=== PATIENT | male | born 1935 | race Caucasian/White ===

== ENCOUNTER 2016-07-20 11:15 | Inpatient (IN) | payer MEDICARE, OTHER ==
--- NOTE | ~2016-07-20 | DS ---
Discharge Summary [facility] [address] [place]. [address] NAME: DAYANA SKY : 33 STATUS : DIS IN PAT#: [id number] AGE: 81 ADM/REG DATE : 07/20/16 MR#: [id number] REPORT SERV DATE: 08/05/16 DICTATED BY: JORDI FRANCOIS DATE: 08/04/16 REPORT STATUS : Draft TRANSCRIBED BY: MODPeg DATE: 08/04/16 ADMISSION DATE: 07/20/2016 DISCHARGE DATE: 08/04/2016 ADDENDUM: SUMMARY: The patient was initially seen by me on the 07/30/2016. Discharge planning had been done and the patient was to be transferred to a senior care facility in [place] or [place]. There was an issue with the [facility] level and approval. On 08/01, [facility] liaison indicated that there were no beds at the [place] or [place] facility for Mr. Sky and the referral was being closed. At this point, the only discharge options for Mr. Sky were direct admission to a [facility] or home with hospice care. I spoke with the patient's as did Case Management and Bottled Beverage Inspector. The patient does not need any criteria for admission to a senior care facility. Financial considerations precluded transfer to a [facility] for long-term care. The patient's opted for home care with hospice. She choiced for [facility]. The patient was seen by [facility] on 08/03/2015. His was present. Discharge was planned for 08/04 pending the 's ability to prepare her house. This actually did occur and the patient is being transferred home with hospice today. There were no new medical issues on 07/30, 07/31, 08/01, 08/02, 08/03, or 08/04. He developed no new symptoms. There were no changes in his exam. There were no changes in his laboratory monitoring required for his medical comorbidities and medication management. He is being discharged home with hospice today on the following medications; aspirin 325 mg daily, Persantine 75 mg twice daily, gabapentin 300 mg at bedtime, Synthroid 25 mcg daily, Seroquel 100 mg at bedtime, Flomax 0.4 mg daily, verapamil 40 mg twice daily, Levemir 20 units at bedtime, Tylenol 650 mg every four hours as needed, [place] 5/325 every four hours as needed, nitroglycerin sublingually as needed, Seroquel 50 mg every four hours as needed, Senokot two at bedtime as needed, omeprazole 20 mg before breakfast, citalopram 20 mg daily. DD/MODL Jordi Francois M.D. / [id number] CC: Juanjose Calero CHARLES
--- NOTE | ~2016-07-20 | DS ---
Discharge Summary [facility] [address] [place]. [address] NAME: DAYANA SKY : 33 STATUS : ADM [facility]#: [id number] AGE: 81 ADM/REG DATE : 07/20/16 MR#: [id number] REPORT SERV DATE: 07/30/16 DICTATED BY: LUCIANO LOGAN DATE: 07/29/16 REPORT STATUS : Draft TRANSCRIBED BY: MODPeg DATE: 07/29/16 ADMISSION DATE: 07/20/2016 DISCHARGE DATE: 07/29/2016 DISCHARGE DIAGNOSES: 1. Type 2 diabetes mellitus. 2. Hypothyroidism. 3. Depression with added stress. 4. Generalized debility. 5. Spinal stenosis by imaging. 6. Benign prostatic hypertrophy. 7. Hyperlipidemia. 8. Hypertension. 9. Mild cognitive impairment due to dementia. 10.History of cerebrovascular accident in the past. 11.Chronic congestive heart failure currently compensated. 12.Type 2 diabetes mellitus. 13.Coronary artery disease, status post CABG. CONSULTANTS DURING THIS HOSPITALIZATION: 1. Chandan Soto DO, of Spine surgery. 2. Aguila Matta M.D., of Psychiatry. INVASIVE PROCEDURES DONE DURING THIS HOSPITALIZATION: None. IMAGING DONE DURING THIS HOSPITALIZATION: MRI of the lumbar spine showing there is marked facet hypertrophy at L3, L4, L5 level. There is significant neuroforaminal stenosis on the left at L4-L5 which would explain left nerve complaints clinically. CT of the abdomen and pelvis showing no acute abdominal or pelvic pathology, status post cholecystectomy. CT of the brain, moderate advanced diffuse cerebral involutional changes and moderate deep white matter chronic microvascular ischemic changes. Old CVA, right posterior parietal watershed zone and old lacunar infarction, right basal ganglia. No definite acute CVA. Portable chest x-ray, cardiomegaly, mild pulmonary vascular congestion which since has resolved. 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 So he was admitted. For detailed history and physical exam, please see note dictated by Dr. Corona on 07/20/2016. HOSPITAL COURSE: After being admitted to the hospital, this patient was cared for by Dr. Len Vasquez. This patient was thought to have failure to thrive as he was not eating and drinking initially, that since have improved. His overall health status is stable. He continues to have difficulty walking. Based on his imaging, Dr. Vasquez asked Dr. Soto to see him and I discussed his care with Dr. Soto personally. He said that his symptoms did not fit any effects of the spinal stenosis and he recommended rehab and no further surgical intervention. This patient recently had lost his son. He had some abnormal grief reaction Discharge Summary [facility] [address] [place]. [address] NAME: DAYANA SKY : 33 STATUS : ADM IN PAT#: [id number] AGE: 81 ADM/REG DATE : 07/20/16 MR#: [id number] REPORT SERV DATE: 07/30/16 DICTATED BY: LUCIANO LOGAN DATE: 07/29/16 REPORT STATUS : Draft TRANSCRIBED BY: MODPeg DATE: 07/29/16 with severe depression and the reported that at times he has had inability to walk, because of this. He also had suffered from lower extremity osteoarthritis and has had knee replacements and that causes more difficulty as well. We asked Psychiatry to see the patient in consultation as well. Dr. 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 At that time, he discontinued his Remeron and changed the Seroquel to 100 mg at bedtime fixed dose. Added Zoloft 50 mg daily. All consultants have signed off his care. Because of his abnormal grief reaction, this patient is awaiting a pass or approval from the [facility] for residential facility. I have been waiting for the last five days to get this. Also the other rubi is that there has not been any beds at the residential facility in [place] or in [place] where the patient was choiced for. He remains medically stable and can be discharged any time once the approvals are obtained. DISCHARGE DISPOSITION: To residential facility for rehab. DISCHARGE ACTIVITY: Per facility. DISCHARGE DIET: Low sodium, 1800-calorie [place] [employer] diet. DISCHARGE MEDICATIONS: Aspirin 325 mg once daily, Lipitor 20 mg once at bedtime, dipyridamole 75 mg twice daily, gabapentin 300 mg once at bedtime, Levemir 40 units subcu twice daily, levothyroxine 25 mcg once daily, [place]-3 fish oil 1000 mg twice daily, Protonix 40 mg once every morning, Seroquel 100 mg once at bedtime, Zoloft 50 mg once daily, Flomax 0.4 mg once at bedtime, verapamil 40 mg twice daily, milk of magnesia 30 mL p.o. p.r.n. for constipation, Nitrostat 0.4 sublingual p.r.n. for chest pain, Lasix 40 mg once daily. DISCHARGE FOLLOWUP: With Dr. Curry Cook post rehab. More than 35 minutes spent planning this patient's discharge, reconciling medications, discussing hospital care, and followup with the patient and the at the bedside and documenting this discharge. SAIDA/KELBY Luciano Logan M.D. / [id number] CC: Juanjose Mejia
--- NOTE | ~2016-07-20 | CN ---
Consultation Report [facility] [address] [place]. [address] NAME: DAYANA SKY : 33 STATUS : ADM IN PAT#: [id number] AGE: 81 ADM/REG DATE : 07/20/16 MR#: [id number] REPORT SERV DATE: 07/23/16 DICTATED BY: CHANDAN SOTO DATE: 07/23/16 REPORT STATUS : Draft TRANSCRIBED BY: KELBY DATE: 07/23/16 INPATIENT CONSULTATION DATE OF CONSULTATION: 07/23/2016 CHIEF COMPLAINT: Lower extremity weakness. Inability to ambulate. HISTORY OF PRESENT ILLNESS: The patient is an 81-year-old, who I saw and examined in the hospital room. His was not present at that time. I will have to discuss with her at a later date. The patient does have a history of dementia as well as major depression per the psychiatry consultation. It does appear from the patient and from some of the previous history that he has had some issues with chronic lower back pain and lower extremity pain, however over the last week or two, he has had generalized debility, inability to ambulate, and feelings of weakness in the lower extremities. It does appear that this may have coincided with the sudden and unexpected of his son that triggered some of the depression issues per Psychiatry. PAST MEDICAL HISTORY: Includes congestive heart failure, history of stroke, dementia, coronary artery disease with CABG, hypertension, and diabetes. FAMILY HISTORY: Noncontributory. SOCIAL HISTORY: He denies tobacco. HOME MEDICATIONS: Include ibuprofen; milk of magnesia; Lipitor; aspirin; verapamil; Lasix; Synthroid; Ditropan; mirtazapine; metformin; Seroquel; Protonix; tamsulosin; omega-3; insulin; and nitroglycerin. ALLERGIES: NYQUIL AND STRAWBERRIES. REVIEW OF SYSTEMS: He denies chest pain or shortness of breath. PHYSICAL EXAMINATION: GENERAL: The patient is in no acute distress. PSYCHIATRIC: Able to answer some basic questions but limited secondary to dementia. SPINE: No diffuse tenderness. NEUROLOGIC: Strength in the lower extremities was difficult to grade due to difficulty with participation; however, he was grossly moving the lower extremities distally fairly well, had limited motion in the proximal lower extremities. When asked if it was related to pain or weakness, he said he did have some pain with it, so I am unable to give a specific grade for muscle strength in the lower extremities. IMAGING: I have reviewed the CT scan and MRI scan. He does have L3-5 disk disease and Consultation Report [facility] [id number] [place]. [address] NAME: DAYANA SKY : 33 STATUS : ADM IN PAT#: [id number] AGE: 81 ADM/REG DATE : 07/20/16 MR#: [id number] REPORT SERV DATE: 07/23/16 DICTATED BY: CHANDAN SOTO DATE: 07/23/16 REPORT STATUS : Draft TRANSCRIBED BY: MODL DATE: 07/23/16 stenosis with some nerve compression. No severe central stenosis. ASSESSMENT: Lumbar disk disease and stenosis as detailed above. This does not explain well his global symptoms of generalized weakness and inability to ambulate. On exam, he actually has better motion and strength distally than proximally which does not correlate well with the imaging findings. There is no significant compression of the proximal lumbar nerve roots that would be contributing to strength in the hip flexors, quadriceps, and hamstrings. PLAN: I will return later to discuss further with the patient's ; however at this point, I would be somewhat hesitant to recommend any surgical intervention as I do not feel that all of his inability to ambulate is directly related to the compression at the L3-L5 levels. Given his extensive medical history, certainly there would be significant risk of surgery. I will discuss with the patient and the once she returns but given the fact that much of this change appeared to be fairly sudden and directly around the time of his son's and major depression, it may be more related to the psychologic issues more so than the nerve root compression. ELDA/KELBY Chandan Soto DO / [id number] CC: Juanjose Mejia
--- NOTE | ~2016-07-20 | HP ---
History And Physical [facility] [address] [place]. [address] NAME: DAYANA SKY : 33 STATUS : ADM IN PAT#: [id number] AGE: 81 ADM/REG DATE : 07/20/16 MR#: [id number] REPORT SERV DATE: 07/20/16 DICTATED BY: GUME CELAYA DATE: 07/20/16 REPORT STATUS : Draft TRANSCRIBED BY: KELBY DATE: 07/20/16 DATE OF ADMISSION: 07/20/2016 CHIEF COMPLAINT: Inability to walk and generalized weakness. HISTORY OF PRESENT ILLNESS: This is an 81-year-old gentleman with medical history significant for congestive heart failure, dementia, history of coronary artery disease status post CABG, history of CVA, and chronic back pain who presented to the hospital with complaints of generalized weakness and inability to walk. The patient was unable to provide a reliable history; however, his was at the bedside at the time of this interview. It was noted by the patient's that the patient's son suddenly about a week ago. Four days ago, the service has held and after the service it was noted that patient started having generalized weakness, reported inability to and started complaining of extreme fatigue. Since the day of onset of the weakness, the patient has noted reduced appetite, inability to eat, excessive crying and also sad mood. No reported history of suicidal ideation or homicidal ideation. Also of note that in the last three days prior to presentation, the patient has had significant reduced p.o. intake. The patient currently lives with his who reports that she is unable to care for him in this current state of condition. The patient has remained bed-bound. has been unable to lift him out of bed. The patient reports complaint of worsening of his chronic back pain with radiation to his legs. There is also associated numbness of the lower extremities. The patient denies any fever. No chills, no cough, no dysuria, no frequency, no urgency. The patient denies any chest pain, denies any shortness of breath, PND, orthopnea, presyncopal or syncopal episode. No associated history of falls prior to presentation. PAST MEDICAL HISTORY: 1. Congestive heart failure. 2. History of CVA. 3. History of mild cognitive impairment due to dementia. 4. History of coronary artery disease status post CABG. 5. History of hypertension. 6. History of diabetes mellitus type 2. PAST SURGICAL HISTORY: History of CABG. FAMILY HISTORY: Significant for leukemia in his son who suddenly after remission on chemotherapy. Also note that the patient is the last child of nine siblings and presently, he is the only one alive. There is report of history of diabetes, hypertension, CVA in the family. SOCIAL HISTORY: The patient quit smoking cigarettes several years ago. Denies drinking alcohol or illicit drug use. The patient currently lives with his . MEDICATIONS: 1. Ibuprofen 400 mg p.o. daily as needed for headache. 2. Milk of magnesia p.o. as needed for constipation. History And Physical [address] [address] NAME: DAYANA SKY : 33 STATUS : ADM IN LOCATED WITHIN [facility]#: [id number] AGE: 81 ADM/REG DATE : 07/20/16 MR#: [id number] REPORT SERV DATE: 07/20/16 DICTATED BY: GUME CELAYA DATE: 07/20/16 REPORT STATUS : Draft TRANSCRIBED BY: KELBY DATE: 07/20/16 3. Lipitor 20 mg p.o. at bedtime. 4. Aspirin 325 mg p.o. every morning. 5. Verapamil 40 mg p.o. b.i.d. 6. Dipyridamole 75 mg p.o. twice a day. 7. Lasix 40 mg p.o. every morning. 8. Levothyroxine 25 mcg p.o. before breakfast. 9. Ditropan XL 10 mg p.o. every morning. 10.Mirtazapine 15 mg p.o. at bedtime. 11.Metformin 500 mg p.o. b.i.d. 12.Seroquel 100 mg p.o. b.i.d. 13.Seroquel 300 mg at bedtime. 14.Protonix 40 mg p.o. daily. 15.Tamsulosin 0.4 mg at bedtime. 16.[place]-3 fatty acid 100 mg p.o. b.i.d. 17.Insulin Levemir 40 mg subcu b.i.d. 18.Nitroglycerin 0.4 mg p.r.n. ALLERGIES: PATIENT IS ALLERGIC TO NYQUIL AND STRAWBERRY. REVIEW OF SYSTEMS: Positive for urinary incontinence per the patient. A 12-point review of system conducted, positive finding as stated in HPI as well as urinary incontinence. All other systems essentially negative. PHYSICAL EXAMINATION: VITAL SIGNS: Blood pressure 146/79 mmHg, temperature 97.8, pulse 79 beats per minute, respiratory rate 16 cycles per minute, saturating 100% on room air. GENERAL: Lying in bed comfortably with bouts of crying spells during the course of the interview. HEENT: Normocephalic, atraumatic. Extraocular muscles intact. Pupils equal, round, and reactive. Not pale. Anicteric. Oral mucosa dry. NECK: JVD. CHEST: No tenderness. Equal, symmetric. LUNGS: Clear to auscultation. No wheezes. No rhonchi. No crackles. ABDOMEN: Bowel sounds normoactive. Soft, nontender. No palpably enlarged organomegaly. Appears obese. EXTREMITIES: Lower extremities, no pedal edema. No cyanosis. NEUROLOGIC: Alert and oriented x2. Episodes of cognitive memory impairment. Strength in the lower extremities bilaterally 3/5. PSYCH: Depressed mood with bouts of crying spells. LABORATORY DATA: 1. Hematology: WBC 6.3, hemoglobin 14.0, hematocrit 40.6, platelets 150. 2. Chemistry: Sodium 140, potassium 3.9, chloride 102, bicarb 26, BUN 17, creatinine 1.49, GFR 43. Glucose 124, calcium is 8.7, total protein 7.3, albumin 3.1, globulin 4.2, total bilirubin 0.4, alkaline phosphatase 59, ALT 35, AST 39, troponin less than 0.02. Lactate 1.4. History And Physical [address] [place]. [address] NAME: DAYANA SKY : 33 STATUS : ADM IN LOCATED WITHIN [facility]#: [id number] AGE: 81 ADM/REG DATE : 07/20/16 MR#: [id number] REPORT SERV DATE: 07/20/16 DICTATED BY: GUME CELAYA DATE: 07/20/16 REPORT STATUS : Draft TRANSCRIBED BY: MODL DATE: 07/20/16 3. Influenza screen A and B negative. 4. Urinalysis is normal. 5. CT brain without contrast. Impression:. a. Moderate to advanced diffuse cerebral involutional changes and moderate deep white matter chronic microvascular ischemic change. b. Old CVA, right posterior parietal watershed zone and old lacunar infarct right basal ganglia. No definitive acute CVA. 6. Chest x-ray. Impression: Cardiomegaly, mild pulmonary vascular congestion. SUMMARY: This is an 81-year-old gentleman who presented to the hospital with complaints of generalized fatigue, inability to walk with depressed mood, extreme fatigue, reduced p.o. intake, who recently lost a son and concern for severe depression as well as pathological bereavement. ASSESSMENT AND PLAN: 1. Fatigue. 2. Pathological bereavement. 3. Major depression. 4. Acute on chronic back pain. 5. Inability to walk. 6. Diabetes mellitus type 2. 7. History of coronary artery disease, status post CABG. 8. Physical deconditioning. 9. Chronic kidney disease stage 3. Creatinine 1.4 at baseline. 10.The patient's extreme fatigue and inability to walk likely related to patient's major depression; however, the patient has complained about worsening of his acute on chronic back pain. This may likely be due to a somatization; however, given patient's known history of worsening back pain, I will obtain an imaging of the lumbar spine to rule out any acute pathology. The patient will be admitted into the Inpatient Service for further evaluation of the definitive etiology of acute on chronic back pain. Also, the patient will be undergoing a physical therapy evaluation for need for outpatient versus inpatient physical rehabilitation. I will also continue patient's antidepressant at this time. We will also resume the patient's subcu insulin. We will place the patient on cardiac telemetry and monitor his heart rhythm closely. 11.Per patient's request, we will notify the patient's primary cardiology, Dr. Billy as courtesy visit. 12.Code status: DNR/DNI. Admission status: Inpatient. 13.Admission disposition: Cardiac telemonitoring. 14.DVT prophylaxis. Heparin subcu. IOO/MODL Gume Celaya MD History And Physical [address] [address] NAME: DAYANA SKY : 33 STATUS : ADM IN PAT#: [id number] AGE: 81 ADM/REG DATE : 07/20/16 MR#: [id number] REPORT SERV DATE: 07/20/16 DICTATED BY: GUME CELAYA DATE: 07/20/16 REPORT STATUS : Draft TRANSCRIBED BY: KELBY DATE: 07/20/16 / [id number] CC: MD Aneesh Foster Jr., M.D.
--- NOTE | ~2016-07-20 | CN ---
Consultation Report [facility] [address] [place]. [address] NAME: DAYANA SKY : 33 STATUS : ADM IN PAT#: [id number] AGE: 81 ADM/REG DATE : 07/20/16 MR#: [id number] REPORT SERV DATE: 07/22/16 DICTATED BY: AGUILA PAYTON DATE: 07/22/16 REPORT STATUS : Draft TRANSCRIBED BY: MODL DATE: 07/22/16 PSYCHIATRIC CONSULTATION DATE OF CONSULTATION: 07/22/2016 I reviewed this patient's medical record. I discussed his status with Dr. Vasquez, the hospitalist. I discussed his history with his , who was at the bedside. HISTORY OF PRESENT ILLNESS: He was admitted with weakness and inability to walk. PAST PSYCHIATRIC HISTORY: His reported that he has been demented since he had a stroke in 12/2013. Following the stroke, he was in a longterm for some months, during which time he was started on Seroquel because of agitation and combativeness. His current home medication list included Seroquel 100 mg b.i.d. and 100 mg h.s. p.r.n. He was also on Remeron 15 mg q.h.s. He was able to do limited walking in the house with the aid of a walker, and he was able to assist his with transfers and toileting. However, since his son's unexpected just over one week ago, he has become increasingly weak and he has lost the ability to walk. SOCIAL HISTORY: He is in his third marriage for the past 26 years. His reports that he has been demented since he had his stroke. She said that he always recognized her, but he was not aware of the month or the year. FAMILY HISTORY: No psychiatric illness. MENTAL STATUS: He was lying very still on his back. He made fairly good eye contact. He slowly extended his arm for a handshake. He uttered an occasional word or phrase. These utterings were mostly irrelevant to my questions. His facial expression was mask like, but it suggested anxiety and sadness. He was oriented to "[place]"- [facility]." He did not know the month or the year. DIAGNOSIS: Dementia, post stroke, with a major grief component. RECOMMENDATIONS: I will discontinue the Remeron and start him on Zoloft 50 mg daily. I will change his fixed dosing of Seroquel to 100 mg q.h.s., and I will add a p.r.n. dosing schedule. I will follow. HIRAM/KELBY Aguila Payton M.D. / [id number] Consultation Report [address] [place]. [address] NAME: DAYANA SKY : 33 STATUS : ADM IN PAT#: [id number] AGE: 81 ADM/REG DATE : 07/20/16 MR#: [id number] REPORT SERV DATE: 07/22/16 DICTATED BY: AGUILA PAYTON DATE: 07/22/16 REPORT STATUS : Draft TRANSCRIBED BY: KELBY DATE: 07/22/16 CC: DO Joyce Sandoval Charles
[2016-07-20 12:01] LABS: BASOPHILS 0.3 %; BASOPHILS ABSOLUTE 0.02 10/3/uL (0.0-0.16); EOSINOPHILS 4.9 %; EOSINOPHILS ABSOLUTE 0.31 10/3/uL (0.0-0.53); ER CBC TAT 0 Hrs 03 Mins; HEMATOCRIT 40.6 % (40.0-51.0); IMMATURE GRANULOCYTES 0.2 %; IMMATURE GRANULOCYTES ABSOLUTE 0.01 10/3/uL (0.0-0.11); LYMPHOCYTES 40.5 %; LYMPHOCYTES ABSOLUTE 2.54 10/3/uL (0.67-4.30); MANUAL DIFF NO %; MEAN CORPUS HGB CONC 34.5 g/dL (32.0-36.0); MEAN CORPUSCULAR HEMOGLOB 32.5 pg (26.0-34.0); MEAN CORPUSCULAR VOLUME 94.2 fL (80-100); MEAN PLATELET VOLUME 9.4 fL (9.2-13.0); MONOCYTES 7.8 %; MONOCYTES ABSOLUTE 0.49 10/3/uL (0.21-1.20); NEUTROPHILS 46.3 %; PLATELET COUNT 150 10/3/uL (150-400); RBC DISTRIBUTION WIDTH 13.4 % (12.0-16.0); RED CELL COUNT 4.31 10/6/uL (4.7-6.1); WHITE BLOOD CELLS 6.3 10/3/uL (4.5-10.5)
[2016-07-20 12:11] LABS: INFLUENZA A SCREEN NEGATIVE (NEGATIVE); INFLUENZA B SCREEN NEGATIVE (NEGATIVE)
[2016-07-20 12:20] LABS: A/G RATIO 0.7 (0.7-1.9); ALBUMIN 3.1 G/DL (3.5-5.0); ALKALINE PHOSPHATASE 59 U/L (45-117); BUN (BLOOD UREA NITROGEN) 17 MG/DL (6-23); CALCIUM, SERUM 8.7 MG/DL (8.5-10.4); CHLORIDE, SERUM 102 MMOL/L (96-112); CO2 (CARBON DIOXIDE) 26 MMOL/L (24-34); CREATININE 1.49 MG/DL (0.70-1.30); GFR AFRICAN AMERICAN 50 ML/MIN (>=60); GFR NON AFRICAN AMERICAN 43 ML/MIN (>=60); GLOBULIN 4.2 G/DL (2.5-4.1); LACTATE 1.4 MMOL/L (0.3-2.4); POTASSIUM, SERUM 3.9 MMOL/L (3.5-5.3); SGOT(AST) 39 U/L (5-40); SGPT(ALT) 35 U/L (5-65); SODIUM, SERUM 140 MMOL/L (135-148); TOTAL BILIRUBIN 0.4 MG/DL (0-1.2); TOTAL PROTEIN 7.3 G/DL (6.0-8.5); TROPONIN I <0.02 NG/ML (<0.05)
[2016-07-20 12:22] LABS: GLUCOSE, SERUM 124 MG/DL (60-99)
[2016-07-20 12:51] LABS: ASCORBIC ACID (UR NOT ORDER) NEG (NEG); BILIRUBIN, URINE NEGATIVE (NEG); ER URINALYSIS TAT 0 Hrs 10 Mins; KETONE, URINE NEGATIVE (NEG); LEUKOCYTE ESTERASE(NOT OR NEG (NEG); NITRITE (URINE) NEG (NEG); WBC (NOT ORDERED) (RFLEX) 1 (0-5)
[2016-07-20] MEDS ORDERED: MOMUD PO (16:29)
[2016-07-20] MEDS ORDERED: LIPITOR20 PO (16:29)
[2016-07-20] MEDS ORDERED: ADVIL PO (16:29)
[2016-07-20] MEDS ORDERED: DIPYRIDAMOLE75 MG PO (16:30)
[2016-07-20] MEDS ORDERED: CALAN40 MG PO (16:30)
[2016-07-20] MEDS ORDERED: ASA5GR PO (16:30)
[2016-07-20] MEDS ORDERED: SYN.025B PO (16:31)
[2016-07-20] MEDS ORDERED: L40 PO (16:31)
[2016-07-20] MEDS ORDERED: DITROPAN XL10 MG PO (16:32)
[2016-07-20] MEDS ORDERED: REM15 PO (16:32)
[2016-07-20] MEDS ORDERED: FLOMAX4 PO (16:33)
[2016-07-20] MEDS ORDERED: PROTONIX PO (16:33)
[2016-07-20] MEDS ORDERED: NEUR300 PO (16:33)
[2016-07-20] MEDS ORDERED: GLUCPH PO (16:33)
[2016-07-20] MEDS ORDERED: SEROQUEL1C PO ×2 (16:33)
[2016-07-20] MEDS ORDERED: FISH-EPA1000 MG PO (16:34)
[2016-07-20] MEDS ORDERED: NITROSTAT0.4 MG SL (16:34)
[2016-07-20] MEDS ORDERED: LEVEMIR SC (16:34)
[2016-07-21 01:35] LABS: FREE T4 1.09 NG/DL (0.76-1.46); PHOSPHORUS, SERUM 2.5 MG/DL (2.5-4.5); ULTRASENSITIVE TSH 5.56 MCIU/ML (0.358-3.740)
[2016-07-21 07:02] LABS: BASOPHILS 0.5 %; BASOPHILS ABSOLUTE 0.03 10/3/uL (0.0-0.16); EOSINOPHILS 7.3 %; HEMATOCRIT 39.3 % (40.0-51.0); HEMOGLOBIN 13.7 g/dL (13.6-17.8); IMMATURE GRANULOCYTES 0.2 %; IMMATURE GRANULOCYTES ABSOLUTE 0.01 10/3/uL (0.0-0.11); LYMPHOCYTES 46.3 %; LYMPHOCYTES ABSOLUTE 2.53 10/3/uL (0.67-4.30); MEAN CORPUS HGB CONC 34.9 g/dL (32.0-36.0); MEAN CORPUSCULAR HEMOGLOB 32.2 pg (26.0-34.0); MEAN CORPUSCULAR VOLUME 92.5 fL (80-100); MEAN PLATELET VOLUME 9.8 fL (9.2-13.0); MONOCYTES ABSOLUTE 0.33 10/3/uL (0.21-1.20); NEUTROPHILS 39.7 %; NEUTROPHILS ABSOLUTE 2.17 10/3/uL (2.02-8.40); PLATELET COUNT 167 10/3/uL (150-400); RBC DISTRIBUTION WIDTH 13.8 % (12.0-16.0); RED CELL COUNT 4.25 10/6/uL (4.7-6.1); WHITE BLOOD CELLS 5.5 10/3/uL (4.5-10.5)
[2016-07-21 07:12] LABS: MANUAL DIFF NO %
[2016-07-21 07:18] LABS: ALBUMIN 3.2 G/DL (3.5-5.0); BUN (BLOOD UREA NITROGEN) 14 MG/DL (6-23); CALCIUM, SERUM 9.1 MG/DL (8.5-10.4); CHLORIDE, SERUM 102 MMOL/L (96-112); CO2 (CARBON DIOXIDE) 26 MMOL/L (24-34); CREATININE 1.35 MG/DL (0.70-1.30); GFR AFRICAN AMERICAN 56 ML/MIN (>=60); GFR NON AFRICAN AMERICAN 48 ML/MIN (>=60); GLUCOSE, SERUM 137 MG/DL (60-99); PHOSPHORUS, SERUM 2.9 MG/DL (2.5-4.5); POTASSIUM, SERUM 3.8 MMOL/L (3.5-5.3); SODIUM, SERUM 139 MMOL/L (135-148)
[2016-07-21 13:38] LABS: PROCALCITONIN 0.05 ng/mL (<0.5)
[2016-07-21 14:00] LABS: ALPHA FETOPROTEIN (TUMOR) 2.1 NG/ML (< 8.0); CA-19-9 47.6 U/ML (< 37.0)
[2016-07-21 14:03] LABS: CPK 79 U/L (0-200)
[2016-07-22 06:19] LABS: BASOPHILS 0.2 %; BASOPHILS ABSOLUTE 0.01 10/3/uL (0.0-0.16); EOSINOPHILS 6.4 %; EOSINOPHILS ABSOLUTE 0.38 10/3/uL (0.0-0.53); HEMATOCRIT 40.6 % (40.0-51.0); HEMOGLOBIN 14.1 g/dL (13.6-17.8); IMMATURE GRANULOCYTES 0.2 %; IMMATURE GRANULOCYTES ABSOLUTE 0.01 10/3/uL (0.0-0.11); LYMPHOCYTES 39.3 %; LYMPHOCYTES ABSOLUTE 2.32 10/3/uL (0.67-4.30); MEAN CORPUS HGB CONC 34.7 g/dL (32.0-36.0); MEAN CORPUSCULAR HEMOGLOB 32.4 pg (26.0-34.0); MEAN CORPUSCULAR VOLUME 93.3 fL (80-100); MEAN PLATELET VOLUME 9.6 fL (9.2-13.0); MONOCYTES 8.1 %; MONOCYTES ABSOLUTE 0.48 10/3/uL (0.21-1.20); NEUTROPHILS 45.8 %; PLATELET COUNT 166 10/3/uL (150-400); RBC DISTRIBUTION WIDTH 13.4 % (12.0-16.0); RED CELL COUNT 4.35 10/6/uL (4.7-6.1); WHITE BLOOD CELLS 5.9 10/3/uL (4.5-10.5)
[2016-07-22 06:20] LABS: MANUAL DIFF NO %
[2016-07-22 06:48] LABS: ALBUMIN 3.2 G/DL (3.5-5.0); ALKALINE PHOSPHATASE 55 U/L (45-117); BUN (BLOOD UREA NITROGEN) 13 MG/DL (6-23); CALCIUM, SERUM 8.9 MG/DL (8.5-10.4); CHLORIDE, SERUM 102 MMOL/L (96-112); CO2 (CARBON DIOXIDE) 25 MMOL/L (24-34); CREATININE 1.44 MG/DL (0.70-1.30); DIRECT BILIRUBIN 0.1 MG/DL (0.0-0.4); GFR AFRICAN AMERICAN 52 ML/MIN (>=60); GFR NON AFRICAN AMERICAN 45 ML/MIN (>=60); GLUCOSE, SERUM 150 MG/DL (60-99); INDIRECT BILIRUBIN(NOT ORDER) 0.9 MG/DL (0.1-0.9); POTASSIUM, SERUM 3.7 MMOL/L (3.5-5.3); SGOT(AST) 32 U/L (5-40); SGPT(ALT) 30 U/L (5-65); SODIUM, SERUM 140 MMOL/L (135-148); TOTAL PROTEIN 7.4 G/DL (6.0-8.5)
[2016-07-23 05:15] LABS: BASOPHILS 0.3 %; BASOPHILS ABSOLUTE 0.02 10/3/uL (0.0-0.16); EOSINOPHILS 6.3 %; EOSINOPHILS ABSOLUTE 0.39 10/3/uL (0.0-0.53); HEMATOCRIT 40.8 % (40.0-51.0); HEMOGLOBIN 14.1 g/dL (13.6-17.8); IMMATURE GRANULOCYTES 0.3 %; IMMATURE GRANULOCYTES ABSOLUTE 0.02 10/3/uL (0.0-0.11); LYMPHOCYTES 37.2 %; MANUAL DIFF NO %; MEAN CORPUS HGB CONC 34.6 g/dL (32.0-36.0); MEAN CORPUSCULAR HEMOGLOB 32.2 pg (26.0-34.0); MEAN CORPUSCULAR VOLUME 93.2 fL (80-100); MEAN PLATELET VOLUME 9.7 fL (9.2-13.0); MONOCYTES 7.4 %; MONOCYTES ABSOLUTE 0.46 10/3/uL (0.21-1.20); NEUTROPHILS 48.5 %; PLATELET COUNT 167 10/3/uL (150-400); RBC DISTRIBUTION WIDTH 13.6 % (12.0-16.0); RED CELL COUNT 4.38 10/6/uL (4.7-6.1); WHITE BLOOD CELLS 6.2 10/3/uL (4.5-10.5)
[2016-07-23 05:34] LABS: BUN (BLOOD UREA NITROGEN) 16 MG/DL (6-23); CALCIUM, SERUM 9.1 MG/DL (8.5-10.4); CHLORIDE, SERUM 103 MMOL/L (96-112); CO2 (CARBON DIOXIDE) 26 MMOL/L (24-34); CREATININE 1.64 MG/DL (0.70-1.30); GFR AFRICAN AMERICAN 44 ML/MIN (>=60); GFR NON AFRICAN AMERICAN 38 ML/MIN (>=60); GLUCOSE, SERUM 139 MG/DL (60-99); PHOSPHORUS, SERUM 2.8 MG/DL (2.5-4.5); POTASSIUM, SERUM 3.8 MMOL/L (3.5-5.3); SODIUM, SERUM 140 MMOL/L (135-148)
[2016-07-24 05:28] LABS: BASOPHILS 0.4 %; BASOPHILS ABSOLUTE 0.02 10/3/uL (0.0-0.16); EOSINOPHILS 7.3 %; EOSINOPHILS ABSOLUTE 0.41 10/3/uL (0.0-0.53); IMMATURE GRANULOCYTES 0.2 %; IMMATURE GRANULOCYTES ABSOLUTE 0.01 10/3/uL (0.0-0.11); LYMPHOCYTES 41.1 %; MEAN CORPUS HGB CONC 34.2 g/dL (32.0-36.0); MEAN CORPUSCULAR HEMOGLOB 31.9 pg (26.0-34.0); MEAN CORPUSCULAR VOLUME 93.1 fL (80-100); MEAN PLATELET VOLUME 9.9 fL (9.2-13.0); MONOCYTES 6.4 %; MONOCYTES ABSOLUTE 0.36 10/3/uL (0.21-1.20); NEUTROPHILS 44.6 %; PLATELET COUNT 174 10/3/uL (150-400); RBC DISTRIBUTION WIDTH 13.9 % (12.0-16.0); RED CELL COUNT 4.08 10/6/uL (4.7-6.1); WHITE BLOOD CELLS 5.6 10/3/uL (4.5-10.5)
[2016-07-24 05:32] LABS: MANUAL DIFF NO %
[2016-07-24 05:44] LABS: ALBUMIN 3.1 G/DL (3.5-5.0); BUN (BLOOD UREA NITROGEN) 19 MG/DL (6-23); CALCIUM, SERUM 8.9 MG/DL (8.5-10.4); CHLORIDE, SERUM 102 MMOL/L (96-112); CO2 (CARBON DIOXIDE) 28 MMOL/L (24-34); GFR AFRICAN AMERICAN 39 ML/MIN (>=60); GFR NON AFRICAN AMERICAN 34 ML/MIN (>=60); GLUCOSE, SERUM 141 MG/DL (60-99); PHOSPHORUS, SERUM 3.3 MG/DL (2.5-4.5); POTASSIUM, SERUM 3.7 MMOL/L (3.5-5.3); SODIUM, SERUM 138 MMOL/L (135-148)
[2016-07-25 05:02] LABS: BASOPHILS 0.4 %; BASOPHILS ABSOLUTE 0.02 10/3/uL (0.0-0.16); EOSINOPHILS 7.7 %; EOSINOPHILS ABSOLUTE 0.42 10/3/uL (0.0-0.53); HEMOGLOBIN 12.8 g/dL (13.6-17.8); IMMATURE GRANULOCYTES 0.2 %; IMMATURE GRANULOCYTES ABSOLUTE 0.01 10/3/uL (0.0-0.11); LYMPHOCYTES 43.9 %; MEAN CORPUS HGB CONC 34.6 g/dL (32.0-36.0); MEAN CORPUSCULAR HEMOGLOB 32.5 pg (26.0-34.0); MEAN CORPUSCULAR VOLUME 93.9 fL (80-100); MEAN PLATELET VOLUME 9.4 fL (9.2-13.0); MONOCYTES 9.1 %; NEUTROPHILS 38.7 %; NEUTROPHILS ABSOLUTE 2.12 10/3/uL (2.02-8.40); PLATELET COUNT 159 10/3/uL (150-400); RBC DISTRIBUTION WIDTH 13.6 % (12.0-16.0); RED CELL COUNT 3.94 10/6/uL (4.7-6.1); WHITE BLOOD CELLS 5.5 10/3/uL (4.5-10.5)
[2016-07-25 05:03] LABS: MANUAL DIFF NO %
[2016-07-25 05:24] LABS: BUN (BLOOD UREA NITROGEN) 21 MG/DL (6-23); CHLORIDE, SERUM 104 MMOL/L (96-112); CO2 (CARBON DIOXIDE) 24 MMOL/L (24-34); CREATININE 1.59 MG/DL (0.70-1.30); GFR AFRICAN AMERICAN 46 ML/MIN (>=60); GFR NON AFRICAN AMERICAN 40 ML/MIN (>=60); GLUCOSE, SERUM 132 MG/DL (60-99); PHOSPHORUS, SERUM 2.9 MG/DL (2.5-4.5); POTASSIUM, SERUM 3.9 MMOL/L (3.5-5.3); SODIUM, SERUM 139 MMOL/L (135-148)
[2016-07-26 05:16] LABS: BASOPHILS 0.5 %; BASOPHILS ABSOLUTE 0.03 10/3/uL (0.0-0.16); EOSINOPHILS 8.2 %; EOSINOPHILS ABSOLUTE 0.46 10/3/uL (0.0-0.53); HEMATOCRIT 39.6 % (40.0-51.0); HEMOGLOBIN 13.6 g/dL (13.6-17.8); IMMATURE GRANULOCYTES 0.2 %; IMMATURE GRANULOCYTES ABSOLUTE 0.01 10/3/uL (0.0-0.11); LYMPHOCYTES 45.5 %; LYMPHOCYTES ABSOLUTE 2.56 10/3/uL (0.67-4.30); MEAN CORPUS HGB CONC 34.3 g/dL (32.0-36.0); MEAN CORPUSCULAR HEMOGLOB 32.1 pg (26.0-34.0); MEAN CORPUSCULAR VOLUME 93.4 fL (80-100); MEAN PLATELET VOLUME 9.6 fL (9.2-13.0); MONOCYTES 7.3 %; MONOCYTES ABSOLUTE 0.41 10/3/uL (0.21-1.20); NEUTROPHILS 38.3 %; NEUTROPHILS ABSOLUTE 2.16 10/3/uL (2.02-8.40); PLATELET COUNT 150 10/3/uL (150-400); RBC DISTRIBUTION WIDTH 14.1 % (12.0-16.0); RED CELL COUNT 4.24 10/6/uL (4.7-6.1); WHITE BLOOD CELLS 5.6 10/3/uL (4.5-10.5)
[2016-07-26 05:18] LABS: MANUAL DIFF NO %
[2016-07-26 05:31] LABS: CALCIUM, SERUM 9.2 MG/DL (8.5-10.4); CHLORIDE, SERUM 105 MMOL/L (96-112); CO2 (CARBON DIOXIDE) 26 MMOL/L (24-34); CREATININE 1.45 MG/DL (0.70-1.30); GFR AFRICAN AMERICAN 51 ML/MIN (>=60); GFR NON AFRICAN AMERICAN 44 ML/MIN (>=60); GLUCOSE, SERUM 129 MG/DL (60-99); PHOSPHORUS, SERUM 3.4 MG/DL (2.5-4.5); POTASSIUM, SERUM 3.9 MMOL/L (3.5-5.3); SODIUM, SERUM 138 MMOL/L (135-148)
[2016-07-26 05:32] LABS: BUN (BLOOD UREA NITROGEN) 16 MG/DL (6-23)
[2016-07-27 05:39] LABS: BASOPHILS 0.2 %; BASOPHILS ABSOLUTE 0.01 10/3/uL (0.0-0.16); EOSINOPHILS 6.9 %; EOSINOPHILS ABSOLUTE 0.41 10/3/uL (0.0-0.53); HEMATOCRIT 39.2 % (40.0-51.0); HEMOGLOBIN 13.6 g/dL (13.6-17.8); IMMATURE GRANULOCYTES 0.2 %; IMMATURE GRANULOCYTES ABSOLUTE 0.01 10/3/uL (0.0-0.11); LYMPHOCYTES 38.6 %; LYMPHOCYTES ABSOLUTE 2.29 10/3/uL (0.67-4.30); MEAN CORPUS HGB CONC 34.7 g/dL (32.0-36.0); MEAN CORPUSCULAR HEMOGLOB 32.5 pg (26.0-34.0); MEAN CORPUSCULAR VOLUME 93.8 fL (80-100); MEAN PLATELET VOLUME 9.6 fL (9.2-13.0); MONOCYTES 6.6 %; MONOCYTES ABSOLUTE 0.39 10/3/uL (0.21-1.20); NEUTROPHILS 47.5 %; NEUTROPHILS ABSOLUTE 2.83 10/3/uL (2.02-8.40); PLATELET COUNT 174 10/3/uL (150-400); RBC DISTRIBUTION WIDTH 13.7 % (12.0-16.0); RED CELL COUNT 4.18 10/6/uL (4.7-6.1); WHITE BLOOD CELLS 5.9 10/3/uL (4.5-10.5)
[2016-07-27 05:45] LABS: MANUAL DIFF NO %
[2016-07-27 05:56] LABS: BUN (BLOOD UREA NITROGEN) 16 MG/DL (6-23); CALCIUM, SERUM 9.2 MG/DL (8.5-10.4); CHLORIDE, SERUM 104 MMOL/L (96-112); CO2 (CARBON DIOXIDE) 24 MMOL/L (24-34); CREATININE 1.38 MG/DL (0.70-1.30); GFR AFRICAN AMERICAN 54 ML/MIN (>=60); GFR NON AFRICAN AMERICAN 47 ML/MIN (>=60); GLUCOSE, SERUM 122 MG/DL (60-99); PHOSPHORUS, SERUM 3.1 MG/DL (2.5-4.5); SODIUM, SERUM 138 MMOL/L (135-148)
[2016-07-28 06:09] LABS: BASOPHILS 0.3 %; BASOPHILS ABSOLUTE 0.02 10/3/uL (0.0-0.16); EOSINOPHILS 4.6 %; EOSINOPHILS ABSOLUTE 0.29 10/3/uL (0.0-0.53); HEMATOCRIT 39.2 % (40.0-51.0); HEMOGLOBIN 13.7 g/dL (13.6-17.8); IMMATURE GRANULOCYTES 0.2 %; IMMATURE GRANULOCYTES ABSOLUTE 0.01 10/3/uL (0.0-0.11); LYMPHOCYTES 41.8 %; LYMPHOCYTES ABSOLUTE 2.63 10/3/uL (0.67-4.30); MEAN CORPUS HGB CONC 34.9 g/dL (32.0-36.0); MEAN CORPUSCULAR HEMOGLOB 32.5 pg (26.0-34.0); MEAN CORPUSCULAR VOLUME 92.9 fL (80-100); MEAN PLATELET VOLUME 9.5 fL (9.2-13.0); MONOCYTES 8.3 %; MONOCYTES ABSOLUTE 0.52 10/3/uL (0.21-1.20); NEUTROPHILS 44.8 %; NEUTROPHILS ABSOLUTE 2.82 10/3/uL (2.02-8.40); PLATELET COUNT 176 10/3/uL (150-400); RBC DISTRIBUTION WIDTH 13.9 % (12.0-16.0); RED CELL COUNT 4.22 10/6/uL (4.7-6.1); WHITE BLOOD CELLS 6.3 10/3/uL (4.5-10.5)
[2016-07-28 06:12] LABS: MANUAL DIFF NO %
[2016-07-28 06:17] LABS: BUN (BLOOD UREA NITROGEN) 14 MG/DL (6-23); CALCIUM, SERUM 9.1 MG/DL (8.5-10.4); CHLORIDE, SERUM 104 MMOL/L (96-112); CO2 (CARBON DIOXIDE) 24 MMOL/L (24-34); CREATININE 1.43 MG/DL (0.70-1.30); GFR AFRICAN AMERICAN 52 ML/MIN (>=60); GFR NON AFRICAN AMERICAN 45 ML/MIN (>=60); GLUCOSE, SERUM 127 MG/DL (60-99); PHOSPHORUS, SERUM 3.1 MG/DL (2.5-4.5); POTASSIUM, SERUM 3.9 MMOL/L (3.5-5.3); SODIUM, SERUM 138 MMOL/L (135-148)
[2016-07-29 05:57] LABS: BASOPHILS 0.5 %; BASOPHILS ABSOLUTE 0.03 10/3/uL (0.0-0.16); EOSINOPHILS 4.9 %; EOSINOPHILS ABSOLUTE 0.31 10/3/uL (0.0-0.53); HEMATOCRIT 38.5 % (40.0-51.0); HEMOGLOBIN 13.4 g/dL (13.6-17.8); IMMATURE GRANULOCYTES 0.3 %; IMMATURE GRANULOCYTES ABSOLUTE 0.02 10/3/uL (0.0-0.11); LYMPHOCYTES ABSOLUTE 3.03 10/3/uL (0.67-4.30); MEAN CORPUS HGB CONC 34.8 g/dL (32.0-36.0); MEAN CORPUSCULAR HEMOGLOB 32.4 pg (26.0-34.0); MEAN CORPUSCULAR VOLUME 93.2 fL (80-100); MEAN PLATELET VOLUME 9.4 fL (9.2-13.0); MONOCYTES 8.4 %; MONOCYTES ABSOLUTE 0.53 10/3/uL (0.21-1.20); NEUTROPHILS 37.9 %; NEUTROPHILS ABSOLUTE 2.39 10/3/uL (2.02-8.40); PLATELET COUNT 174 10/3/uL (150-400); RBC DISTRIBUTION WIDTH 14.2 % (12.0-16.0); RED CELL COUNT 4.13 10/6/uL (4.7-6.1); WHITE BLOOD CELLS 6.3 10/3/uL (4.5-10.5)
[2016-07-29 06:06] LABS: MANUAL DIFF NO %
[2016-07-29 06:08] LABS: BUN (BLOOD UREA NITROGEN) 16 MG/DL (6-23); CHLORIDE, SERUM 103 MMOL/L (96-112); CO2 (CARBON DIOXIDE) 24 MMOL/L (24-34); CREATININE 1.55 MG/DL (0.70-1.30); GFR AFRICAN AMERICAN 47 ML/MIN (>=60); GFR NON AFRICAN AMERICAN 41 ML/MIN (>=60); GLUCOSE, SERUM 112 MG/DL (60-99); PHOSPHORUS, SERUM 3.8 MG/DL (2.5-4.5); POTASSIUM, SERUM 4.1 MMOL/L (3.5-5.3); SODIUM, SERUM 139 MMOL/L (135-148)
[2016-07-30 06:17] LABS: BASOPHILS 0.3 %; BASOPHILS ABSOLUTE 0.02 10/3/uL (0.0-0.16); EOSINOPHILS 4.3 %; EOSINOPHILS ABSOLUTE 0.26 10/3/uL (0.0-0.53); HEMATOCRIT 39.9 % (40.0-51.0); HEMOGLOBIN 13.8 g/dL (13.6-17.8); IMMATURE GRANULOCYTES 0.3 %; IMMATURE GRANULOCYTES ABSOLUTE 0.02 10/3/uL (0.0-0.11); LYMPHOCYTES 41.8 %; LYMPHOCYTES ABSOLUTE 2.54 10/3/uL (0.67-4.30); MANUAL DIFF NO %; MEAN CORPUS HGB CONC 34.6 g/dL (32.0-36.0); MEAN CORPUSCULAR HEMOGLOB 32.5 pg (26.0-34.0); MEAN CORPUSCULAR VOLUME 94.1 fL (80-100); MEAN PLATELET VOLUME 9.6 fL (9.2-13.0); MONOCYTES 8.1 %; MONOCYTES ABSOLUTE 0.49 10/3/uL (0.21-1.20); NEUTROPHILS 45.2 %; NEUTROPHILS ABSOLUTE 2.75 10/3/uL (2.02-8.40); PLATELET COUNT 172 10/3/uL (150-400); RBC DISTRIBUTION WIDTH 13.9 % (12.0-16.0); RED CELL COUNT 4.24 10/6/uL (4.7-6.1); WHITE BLOOD CELLS 6.1 10/3/uL (4.5-10.5)
[2016-07-30 06:30] LABS: BUN (BLOOD UREA NITROGEN) 19 MG/DL (6-23); CALCIUM, SERUM 8.9 MG/DL (8.5-10.4); CHLORIDE, SERUM 105 MMOL/L (96-112); CO2 (CARBON DIOXIDE) 26 MMOL/L (24-34); CREATININE 1.61 MG/DL (0.70-1.30); GFR AFRICAN AMERICAN 45 ML/MIN (>=60); GFR NON AFRICAN AMERICAN 39 ML/MIN (>=60); GLUCOSE, SERUM 122 MG/DL (60-99); PHOSPHORUS, SERUM 3.5 MG/DL (2.5-4.5); POTASSIUM, SERUM 3.9 MMOL/L (3.5-5.3); SODIUM, SERUM 139 MMOL/L (135-148)
[2016-07-30 19:16] LABS: FERRITIN 63 NG/ML (26-388); IRON BINDING CAPACITY 305 MCG/DL (250-450)
[2016-07-30 19:18] LABS: C-REACTIVE PROTEIN < 2.9 MG/L (<8.0); IRON, SERUM 78 MCG/DL (35-150)
[2016-07-31 04:28] LABS: BASOPHILS 0.6 %; BASOPHILS ABSOLUTE 0.04 10/3/uL (0.0-0.16); EOSINOPHILS 4.5 %; EOSINOPHILS ABSOLUTE 0.29 10/3/uL (0.0-0.53); HEMATOCRIT 39.1 % (40.0-51.0); HEMOGLOBIN 13.5 g/dL (13.6-17.8); IMMATURE GRANULOCYTES 0.2 %; IMMATURE GRANULOCYTES ABSOLUTE 0.01 10/3/uL (0.0-0.11); LYMPHOCYTES 46.7 %; MEAN CORPUS HGB CONC 34.5 g/dL (32.0-36.0); MEAN CORPUSCULAR HEMOGLOB 32.4 pg (26.0-34.0); MEAN CORPUSCULAR VOLUME 93.8 fL (80-100); MEAN PLATELET VOLUME 9.4 fL (9.2-13.0); MONOCYTES 7.5 %; MONOCYTES ABSOLUTE 0.48 10/3/uL (0.21-1.20); NEUTROPHILS 40.5 %; NEUTROPHILS ABSOLUTE 2.61 10/3/uL (2.02-8.40); PLATELET COUNT 185 10/3/uL (150-400); RBC DISTRIBUTION WIDTH 14.2 % (12.0-16.0); RED CELL COUNT 4.17 10/6/uL (4.7-6.1); WHITE BLOOD CELLS 6.4 10/3/uL (4.5-10.5)
[2016-07-31 04:38] LABS: BUN (BLOOD UREA NITROGEN) 20 MG/DL (6-23); CALCIUM, SERUM 8.8 MG/DL (8.5-10.4); CHLORIDE, SERUM 102 MMOL/L (96-112); CO2 (CARBON DIOXIDE) 26 MMOL/L (24-34); CREATININE 1.41 MG/DL (0.70-1.30); GFR AFRICAN AMERICAN 53 ML/MIN (>=60); GFR NON AFRICAN AMERICAN 46 ML/MIN (>=60); GLUCOSE, SERUM 123 MG/DL (60-99); PHOSPHORUS, SERUM 4.2 MG/DL (2.5-4.5); SODIUM, SERUM 140 MMOL/L (135-148)
[2016-07-31 04:41] LABS: MANUAL DIFF NO %
[2016-08-01 06:19] LABS: BASOPHILS 0.2 %; BASOPHILS ABSOLUTE 0.01 10/3/uL (0.0-0.16); EOSINOPHILS 3.7 %; EOSINOPHILS ABSOLUTE 0.24 10/3/uL (0.0-0.53); HEMATOCRIT 38.2 % (40.0-51.0); HEMOGLOBIN 13.1 g/dL (13.6-17.8); LYMPHOCYTES 40.6 %; LYMPHOCYTES ABSOLUTE 2.65 10/3/uL (0.67-4.30); MEAN CORPUS HGB CONC 34.3 g/dL (32.0-36.0); MEAN CORPUSCULAR HEMOGLOB 32.2 pg (26.0-34.0); MEAN CORPUSCULAR VOLUME 93.9 fL (80-100); MEAN PLATELET VOLUME 9.4 fL (9.2-13.0); MONOCYTES ABSOLUTE 0.52 10/3/uL (0.21-1.20); NEUTROPHILS 47.5 %; PLATELET COUNT 191 10/3/uL (150-400); RBC DISTRIBUTION WIDTH 14.2 % (12.0-16.0); RED CELL COUNT 4.07 10/6/uL (4.7-6.1); WHITE BLOOD CELLS 6.5 10/3/uL (4.5-10.5)
[2016-08-01 06:20] LABS: MANUAL DIFF NO %
[2016-08-01 06:21] LABS: BUN (BLOOD UREA NITROGEN) 21 MG/DL (6-23); CALCIUM, SERUM 9.3 MG/DL (8.5-10.4); CHLORIDE, SERUM 103 MMOL/L (96-112); CO2 (CARBON DIOXIDE) 27 MMOL/L (24-34); CREATININE 1.38 MG/DL (0.70-1.30); GFR AFRICAN AMERICAN 54 ML/MIN (>=60); GFR NON AFRICAN AMERICAN 47 ML/MIN (>=60); GLUCOSE, SERUM 125 MG/DL (60-99); POTASSIUM, SERUM 3.8 MMOL/L (3.5-5.3); SODIUM, SERUM 139 MMOL/L (135-148)
[2016-08-01 06:23] LABS: PHOSPHORUS, SERUM 3.2 MG/DL (2.5-4.5)
[2016-08-02 06:54] LABS: BASOPHILS 0.5 %; BASOPHILS ABSOLUTE 0.03 10/3/uL (0.0-0.16); EOSINOPHILS 5.8 %; EOSINOPHILS ABSOLUTE 0.33 10/3/uL (0.0-0.53); HEMATOCRIT 39.8 % (40.0-51.0); HEMOGLOBIN 13.8 g/dL (13.6-17.8); IMMATURE GRANULOCYTES 0.3 %; IMMATURE GRANULOCYTES ABSOLUTE 0.02 10/3/uL (0.0-0.11); LYMPHOCYTES 43.3 %; LYMPHOCYTES ABSOLUTE 2.48 10/3/uL (0.67-4.30); MANUAL DIFF NO %; MEAN CORPUS HGB CONC 34.7 g/dL (32.0-36.0); MEAN CORPUSCULAR HEMOGLOB 32.7 pg (26.0-34.0); MEAN CORPUSCULAR VOLUME 94.3 fL (80-100); MEAN PLATELET VOLUME 9.7 fL (9.2-13.0); MONOCYTES 8.2 %; MONOCYTES ABSOLUTE 0.47 10/3/uL (0.21-1.20); NEUTROPHILS 41.9 %; PLATELET COUNT 196 10/3/uL (150-400); RBC DISTRIBUTION WIDTH 14.2 % (12.0-16.0); RED CELL COUNT 4.22 10/6/uL (4.7-6.1); WHITE BLOOD CELLS 5.7 10/3/uL (4.5-10.5)
[2016-08-02 07:08] LABS: BUN (BLOOD UREA NITROGEN) 20 MG/DL (6-23); CALCIUM, SERUM 9.2 MG/DL (8.5-10.4); CHLORIDE, SERUM 104 MMOL/L (96-112); CO2 (CARBON DIOXIDE) 27 MMOL/L (24-34); CREATININE 1.48 MG/DL (0.70-1.30); GFR AFRICAN AMERICAN 50 ML/MIN (>=60); GFR NON AFRICAN AMERICAN 43 ML/MIN (>=60); GLUCOSE, SERUM 120 MG/DL (60-99); PHOSPHORUS, SERUM 3.5 MG/DL (2.5-4.5); SODIUM, SERUM 141 MMOL/L (135-148)
== END 2016-08-04 19:43 | disposition hospice, home (50) | DRG 57 ==
LOC: ER 11:15 → CDU2 17:03 → 6NO 19:21
PROVIDERS: Emergency Medicine; Hospitalist; Internal Medicine
DX: I69.318 Other symptoms and signs involving cognitive functions following cerebral infarction (principal); N17.9 Acute kidney failure, unspecified; F01.50 Vascular dementia, unspecified severity, without behavioral disturbance, psychotic disturbance, mood disturbance, and anxiety; E11.9 Type 2 diabetes mellitus without complications; F43.21 Adjustment disorder with depressed mood; N18.3 Chronic kidney disease, stage 3 (moderate); I25.10 Atherosclerotic heart disease of native coronary artery without angina pectoris; R26.2 Difficulty in walking, not elsewhere classified; M54.9 Dorsalgia, unspecified; M51.9 Unspecified thoracic, thoracolumbar and lumbosacral intervertebral disc disorder; E03.9 Hypothyroidism, unspecified; I12.9 Hypertensive chronic kidney disease with stage 1 through stage 4 chronic kidney disease, or unspecified chronic kidney disease; G89.4 Chronic pain syndrome; N40.0 Benign prostatic hyperplasia without lower urinary tract symptoms; Z80.6 Family history of leukemia; Z95.1 Presence of aortocoronary bypass graft; Z86.73 Personal history of transient ischemic attack (TIA), and cerebral infarction without residual deficits; Z87.891 Personal history of nicotine dependence; Z83.3 Family history of diabetes mellitus; Z82.49 Family history of ischemic heart disease and other diseases of the circulatory system; Z82.3 Family history of stroke; Z91.018 Allergy to other foods; Z88.8 Allergy status to other drugs, medicaments and biological substances; Z96.653 Presence of artificial knee joint, bilateral
CPT/HCPCS: 70450; 71010; 72131; 72148; 74176; 80048; 80053; 80069; 80076; 81001; 82105; 82533; 82550; 82607; 82728; 82962; 83036; 83540; 83550; 83605; 83735; 84100; 84145; 84439; 84443; 84484; 85025; 86140; 86301; 87040; 87804; 93005; 97110-GP; 97162-GP; 97530-GP; 99285; A9270-GY; G8978-CM-GP; G8979-CL-GP; J1956; J2405